=== PATIENT | female | born 1955 | race Caucasian/White ===

== ENCOUNTER 2025-03-13 06:25 | Day surgery (SDC) | payer MEDICARE, OTHER, SELFPAY | END 2025-03-13 13:52 | disposition home or self-care (01) | LOC: GI 06:25 | PROVIDERS: ATTENDING PHYSICIAN Internal Medicine | DX: D51.0 Vitamin B12 deficiency anemia due to intrinsic factor deficiency (principal); K44.9 Diaphragmatic hernia without obstruction or gangrene; K22.89 Other specified disease of esophagus; K31.89 Other diseases of stomach and duodenum; K31.A19 Gastric intestinal metaplasia without dysplasia, unspecified site; K31.A12 Gastric intestinal metaplasia without dysplasia, involving the body (corpus); K22.70 Barrett's esophagus without dysplasia | CPT/HCPCS: 43239; 88305; 88342 ==